=== PATIENT | female | born 1960 | race Two or more races ===

== ENCOUNTER 2019-10-19 10:18 | Day surgery (SDC) | payer OTHER | END 2019-10-19 16:00 | disposition home or self-care (01) | LOC: AMB-ENDOS 10:18 | PROVIDERS: ATTEND Surgery | DX: C18.7 Malignant neoplasm of sigmoid colon (principal); D12.5 Benign neoplasm of sigmoid colon ==

== ENCOUNTER 2019-11-20 11:45 | Inpatient (IN) | payer OTHER ==
[~2019-11-20] VITALS: Ht 162.6 cm; Wt 81.6 kg
[2019-11-20] MEDS ORDERED: TOPROL XL25 M1 PO (15:07)
[2019-11-20] MEDS ORDERED: LOSARTAN-HCTZ1 EAC1 PO (15:07)
[2019-11-24] MEDS ORDERED: LOPRESSOR25 MG (10:23)
[2019-11-26] MEDS ORDERED: PRILOSEC OTC20 MG PO (10:54)
[2019-11-26] MEDS ORDERED: PERCOCET 5-3251 EACH PO (10:54)
== END 2019-11-26 12:19 | disposition home or self-care (01) | DRG 331 ==
LOC: O/R 11-24 05:32 → SURH 11-24 05:32 → O/R 11-24 07:00 → SURH 11-24 10:37 → O/R 11-24 11:45 → SURH 11-24 19:46
PROVIDERS: ADMIT Surgery; ATTEND Surgery
PROC: 07BB4ZZ Excision of Mesenteric Lymphatic, Percutaneous Endoscopic Approach (ICD-10-PCS; 2019-11-24)
PROC: 0DTE4ZZ Resection of Large Intestine, Percutaneous Endoscopic Approach (ICD-10-PCS; principal; 2019-11-24 07:00)
DX: K63.5 Polyp of colon (principal); D36.0 Benign neoplasm of lymph nodes